=== PATIENT | male | born 1980 | race African-American/Black ===

== ENCOUNTER 2016-11-13 23:25 | Inpatient (IN) | payer OTHER ==
--- NOTE | ~2016-11-13 | US6 ---
[facility] A Service of [facility] RADIOLOGY TEXT RESULTS PATIENT: MITZI PEDROZA LOCATION: [place] [address] : 78 UNIT #: [id number] AGE: [address]: Tiago Luis MD SEX: M ORDER DR: [id number] [place] [id number] [facility] [place] [place], [place] [address] [id number] MR#: [id number] Acc #: [id number] NAME: MITZI PEDROZA : 1980 SEX: M STUDY DATE/TIME: 11/17/2016 10:01 UNIT: [facility] ROOM: [facility] STUDY DESCRIPTION: US Abdominal Limited Attending Physician: Tiago Luis M.D. Ordering Physician: Tiago Luis M.D. Primary Care Physician: No Primary Care Physician MEDICAL IMAGING REPORT This report is preliminary unless electronic signature is present EXAM Right upper quadrant abdominal ultrasound. INDICATION Elevated liver enzyme levels. PROCEDURE Evans-scale and Doppler imaging right upper quadrant of the abdomen. COMPARISON None FINDINGS Pancreas completely obscured. Liver measures 17.5 cm. Diffusely increased echotexture. Right kidney measures 11 cm. No hydronephrosis. Stones are seen in the gallbladder. Gallbladder is contracted. Common duct measures 3 mm. No gallbladder wall thickening. IMPRESSION 1. Hepatic steatosis. 2. Uncomplicated cholelithiasis. Dictated by... Javan Leslie M.D. THIS IS AN ELECTRONICALLY VERIFIED REPORT Javan Leslie M.D. at 11/17/2016 4:52 PM EED/julito TD: 11/17/2016 14:00 JOB #: [id number] [facility] A Service of [facility] RADIOLOGY TEXT RESULTS PATIENT: MITZI PEDROZA LOCATION: [facility] : 79 UNIT #: [id number] AGE: [address]: Tiago Luis MD SEX: M ORDER DR: MEDICAL IMAGING REPORT COPY
--- NOTE | ~2016-11-13 | US78 ---
[facility] A Service of [facility] RADIOLOGY TEXT RESULTS PATIENT: MITZI PEDROZA LOCATION: [facility] : 78 UNIT #: [id number] AGE: [address]: Tiago Luis MD SEX: M ORDER DR: [id number] [facility] [address] [place], [place] [address] [id number] I MR#: [id number] Acc #: [id number] NAME: MITZI PEDROZA : 1980 SEX: M STUDY DATE/TIME: 11/17/2016 9:15 UNIT: [facility] ROOM: [facility] STUDY DESCRIPTION: US Kidney Duplex Complete Attending Physician: Tiago Luis M.D. Ordering Physician: Tiago Luis M.D. Primary Care Physician: No Primary Care Physician MEDICAL IMAGING REPORT This report is preliminary unless electronic signature is present EXAM Bilateral renal artery Doppler ultrasound dated 11/17/2016 HISTORY Hypertension. COMPARISON None. FINDINGS Right kidney measures 11.3 cm and the left kidney measures 10.7 cm in length. Each kidney demonstrates normal cortical thickness and cortical echotexture without cystic or solid abnormality. No shadowing right left renal stone or hydronephrosis is evident. Right intrarenal resistive indices vary between 0.52 - 0.73. Right renal artery peak systolic velocity proximal 111 cm/sec, mid segment 155 meters per second, distal segment 66.1 cm/sec. Normal spectral Doppler waveforms are demonstrated. Right renal vein is patent. Juxtarenal abdominal aorta peak systolic velocity is proximal 114 cm/sec. Left intrarenal resistive indices vary between 0.342 - 0.63. Left renal artery peak systolic velocity proximal segment 113.1 centers per second, mid segment 64.1 cm/sec, distal segment 57.5 cm/sec. Left renal vein is patent. Right renal to aortic ratio 1.4. Left renal to aortic ratio 1.0. IMPRESSION [facility] A Service of [facility] RADIOLOGY TEXT RESULTS PATIENT: MITZI PEDROZA LOCATION: [facility] : 79 UNIT #: [id number] AGE: [address]: Tiago Luis MD SEX: M ORDER DR: No hemodynamically significant stenosis is detected within the bilateral renal arteries sonographically. If more definitive evaluation is desired, a dedicated CTA of the renal arteries would be recommended. Dictated by... Rena Oliveros M.D. THIS IS AN ELECTRONICALLY VERIFIED REPORT Rena Oliveros M.D. at 11/18/2016 8:42 AM SHARON/brady TD: 11/17/2016 22:37 JOB #: [id number] MEDICAL IMAGING REPORT COPY
--- NOTE | ~2016-11-13 | EKG ---
PATIENT: MITZI PEDROZA UNIT #: [id number] Ventricular Rate: 86 BPM Atrial Rate: 86 BPM P-R Interval: 158 ms QRS Duration: 100 ms Q-T Interval: 380 ms QTC Calculation(Bezet): 454 ms P Davin: 32 degrees Calculated R Davin: 21 degrees Calculated T Davin: 11 degrees Diagnosis Line: Normal sinus rhythm Diagnosis Line: Normal ECG Diagnosis Line: When compared with ECG of 14-NOV-2016 12:41, Diagnosis Line: No significant change was found Diagnosis Line: Confirmed by JESSE DIEGO MD ([id number]) on Diagnosis Line: 11/16/2016 10:38:26 PM INTERPRETING MD: AYANA
--- NOTE | ~2016-11-13 | A ---
[facility] Nutrition Therapy DATE: 11/14/16 Patient: MITZI PEDROZA Physician: GALI Address: [address] [place] [address] Room/Bed: [address] [place] [address], Zip: [place] [address] Admit Date: 11/14/16 Date of : [birth year] Height: 5 5 Weight: 296 134.4 NUTRITIONAL ASSESSMENT: REASON: MD consult re: obesity, High BMI note Admitting Dx: 36 y/o male admitted with PNA, influenze Type A PMH: HTN Anthropometrics: Ht: 65", Wt: 296 lbs, BMI: 49 Diet: Healthy heart Assessment: Chart reviewed, events noted. RD consulted I assume to provide diet education related to obesity. RD provided written education on Cardiac/TLC diet, 1800 calorie 5-day meal plan and healthy snacks. Verbally reviewed briefly, patient did not want much verbal education as he prefers to look over the handouts himself, states he has been getting a lot of information from people on improving his health, states he needs to increase his vegetable intake. RD encouraged slow, gradual weight loss noting BMI of 49. Patient showed good understanding and moderate motivation to follow diet. Potential barriers include disinterest/lack of motivation. RD left business card with contact info and encouraged patient to call or email with any questions, he had no further questions at this time. Dx: 1) Morbid obesity r/t lifestyle, diet AEB BMI 49. 2) Food and nutrition related knowledge deficit r/t no prior diet education AEB MD consult. Intervention: Healthy heart diet education Monitoring, Evaluation and Goals: 1. Gradual weight loss towards a healthy BMI range. 2. Understanding and implementation of healthy heart diet. Monitor: Per protocol, criteria to determine if above goals met Recommendations: 1. Continue healthy heart diet, encourage patient compliance after discharge. 2. RD provided diet education with the following handouts: -Cardiac/TLC diet -1800 calorie per day 5-day sample meal plan [facility] Nutrition Therapy DATE: 11/14/16 Patient: MITZI PEDROZA Physician: GALI Address: [address] [place] [address] Room/Bed: [address] [place] [address], Zip: [place] [address] Admit Date: 11/14/16 Date of : [birth year] Height: 5 5 Weight: 296 134.4 -Healthy snack ideas Patient showed good understanding with moderate motivation to follow diet 3. Please weigh q 3 days for monitoring purposes, patient is obese with goal to lose weight. RD will follow Mild nutrition risk Respectfully, Kourtney Oreilly RD, LD Food and Nutritional Services [facility] cc: client file
--- NOTE | ~2016-11-13 | HP ---
Unit #: [id number] #: [id number] Patient: MITZI PEDROZA. [id number] [place] [address] [place], [place] [address] [id number] I MR#: [id number] NAME: MITZI PEDROZA ROOM: 20872 Age: 36 Sex: M Admission Date: 11/14/2016 : 1980 Attending Physician: Beba Jiménez M.D. Primary Care Physician: No Primary Care Physician HISTORY AND PHYSICAL CHIEF COMPLAINT Sick. HISTORY OF PRESENT ILLNESS The patient is a 36-year-old male with a past medical history of hypertension who presented to the emergency department for evaluation of the above. The patient stats that he has not been feeling well for about two days. he reports an occasionally productive cough. He denies any shortness of breath. No chest pain, no palpitations. He has had a runny nose. He reports occasional loose stool. He denies any change in his weight. No swelling in his legs. He did not get a flu shot this year. Upon arrival in the emergency department, the patient's pulse and blood pressure were 118 and 214/124 respectively. Oxygen saturation was 99% on room air. Chest x-ray shows a right perihilar opacity. Rapid flu screen was positive for influenzae A. He was given 0.1 mg of clonidine as well as 75 mg of Tamiflu in the emergency department. He is being admitted to [facility] for evaluation and further treatment. PAST MEDICAL HISTORY Hypertension. The patient was previously on an unknown medication that he has not been taking. PAST SURGICAL HISTORY None. SOCIAL HISTORY The patient lives with his uncle. There is no tobacco use. He reports occasional alcohol use. He denies illicit drug use. FAMILY HISTORY Notable for there being no family history of diabetes. He thinks a maternal uncle may have had a myocardial infarction. He is unsure of the age. ALLERGIES No known allergies. HOME MEDICATIONS None. REVIEW OF SYSTEMS Unit #: [id number] #: [id number] Patient: MITZI PEDROZA A ten point review of systems is negative except as indicated in HPI. DIAGNOSTIC STUDIES CARDIOVASCULAR: EKG shows sinus tachycardia with a rate of 107 beats per minute. IMAGING: Chest x-ray shows an opacity in the right superior perihilar region concerning for focal lung consolidation. There is also thickening of the central peribronchovascular soft tissues, moderate cardiac silhouette enlargement with no failure appreciated. Chest x-ray reviewed by me as well. LABORATORY: Basic metabolic panel shows potassium of 3.2, glucose is 124. Rapid flu screen is positive for influenzae B. Troponin is 0.12. Complete blood count is essentially normal. PHYSICAL EXAMINATION VITAL SIGNS: Temperature is 99.8, pulse 118, respirations 18, blood pressure 214/124. GENERAL: The patient is an -Gu[place] male who is awake and alert, in no acute distress. HEENT: The head is atraumatic. Mucous membranes are moist. NECK: Supple. Trachea is midline. CARDIOVASCULAR: Regular rate and rhythm. LUNGS: Relatively clear to auscultation bilaterally with no increased work of breathing. ABDOMEN: Soft, nontender with bowel sounds present in all four quadrants. EXTREMITIES: Nontender with no pedal edema. NEURO: The patient is awake and alert. He follows commands. PSYCH: Mood and affect are normal. The patient is cooperative. SKIN: Skin of examined areas is warm and dry. ASSESSMENT The patient is a 36-year-old male with: 1. Pneumonia, community-acquired. 2. Influenzae B: The patient received Tamiflu in the emergency department. 3. Hypokalemia. 4. Uncontrolled hypertension: The patient was on an unknown blood pressure medication at home that he has not been taking. He received clonidine 0.1 mg in the emergency department. Most recent blood pressure was 185/124. 5. Cardiac enlargement: The patient denies any history of congestive heart failure. 6. Elevated troponin: The patient denies any chest pain. Troponin is 0.12. 7. Obesity with a weight of 111 kilograms. PLAN 1. Admit to intermediate level. 2. Healthy heart diet. 3. Blood cultures x2. 4. Sputum culture and sensitivity. 5. Procalcitonin level. 6. Rocephin IV and azithromycin IV for community-acquired pneumonia pending further workup. Unit #: [id number] #: [id number] Patient: MITZI PEDROZA 7. Sepsis protocol. 8. Check urinalysis with culture and sensitivity. 9. Urine tox screen. 10. Supplemental oxygen, 2 to 4 L, to maintain saturations greater than 92%. 11. Duo-Nebs p.r.n. q.4 hours. 12. Tamiflu 75 mg p.o. b.i.d. 13. Check magnesium level. Potassium and magnesium protocol. 14. P.r.n. hydralazine. 15. Serial cardiac enzymes. 16. Fasting lipid panel. 17. 2D echo for further evaluation of cardiac enlargement. 18. Check BNP. 19. Consult Dr. Handy regarding elevated troponin. 20. Nutrition consult regarding obesity. 21. P.r.n. Tylenol. 22. SCDs for DVT prophylaxis. 23. Repeat labs in the morning. 24. Additional workup and consultants based on above. Dictated by Jhon Rondon/rachana TD: 11/14/2016 05:59 JOB #: [id number] HISTORY AND PHYSICAL X Beba Jiménez MD HISTORY AND PHYSICAL
--- NOTE | ~2016-11-13 | DS ---
Unit #: [id number] #: [id number] Patient: MITZI PEDROZA. [id number] [address] [address] [id number] I MR#: [id number] NAME: MITZI PEDROZA ROOM: 579 Age: 36 Sex: M Admission Date: 11/14/2016 : 1980 Discharge Date: 11/18/2016 Attending Physician: Tiago Luis M.D. Primary Care Physician: No Primary Care Physician DISCHARGE SUMMARY ADMITTING DIAGNOSIS Feeling sick. FURTHER DIAGNOSES 1. Influenzae B pneumonia. 2. Hypertensive crisis. 3. Hyperlipidemia. 4. Morbid obesity. CONSULTANTS Dr. Handy. 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 HOSPITAL COURSE He was noted to be positive for influenzae B. He was treated with Tamiflu for five days. His blood pressure was initially in the 200s/120s. Feed Crusher Operator saw him. He was started on blood pressure medications. His blood pressure medications were titrated. His LDL was noted to be elevated and he was started on Lipitor. We will explain to him about side effects of medications of Lipitor including rhabdomyolysis and elevated liver function tests. We will explain about the possible (1) for the LEYLA inhibitors and requested him to follow with primary care. He does not have a primary care but trying to set up an appointment in the transition clinic on November 27, 2016, at 9:20 in the morning. He was counseled to take his medications regularly for the blood pressure and follow with his primary care. I requested him to be off away from daycare kids at least for a couple of days more to make sure his symptoms resolve. On the day of the discharge, his physical examination: VITAL SIGNS - temperature 97.8, pulse rate 82, respiratory rate 20, blood pressure 132/68. The patient is obese, alert, oriented x3, lying in the bed, in no acute distress. HEENT - normocephalic, atraumatic. No icterus. PERRLA. Extraocular movements are intact. NECK is supple. No JVD. HEART - S1, S2. Regular rate and rhythm. CHEST - bilateral equal air entry, clear to auscultation. ABDOMEN - soft, nontender. EXTREMITIES - no edema. Normal pulses. DISCHARGE MEDICATIONS Include: Unit #: [id number] #: [id number] Patient: MITZI PEDROZA 1. Lipitor 20 mg p.o. daily. 2. Atenolol 100 mg p.o. daily. 3. Hydrochlorothiazide 25 mg daily. 4. Lisinopril 30 mg p.o. daily. 5. Hydralazine 100 mg p.o. twice a day. 6. KCl 20 mEq p.o. daily. He was instructed to follow up with his primary care in one to two weeks. Total time spent in the discharge - 28 minutes. Dictated by..Jhon Marshall TD: 11/21/2016 05:53 JOB #: [id number] DISCHARGE SUMMARY X X DISCHARGE SUMMARY
--- NOTE | ~2016-11-13 | EKG ---
PATIENT: MITZI PEDROZA UNIT #: [id number] Ventricular Rate: 107 BPM Atrial Rate: 107 BPM P-R Interval: 172 ms QRS Duration: 88 ms Q-T Interval: 332 ms QTC Calculation(Bezet): 443 ms P Stock[place]: 41 degrees Calculated R [place]: -6 degrees Calculated T [place]: 25 degrees Diagnosis Line: Sinus tachycardia Diagnosis Line: Otherwise normal ECG Diagnosis Line: No previous ECGs available Diagnosis Line: Confirmed by ANCA DORANTES MD ([id number]) on 11/14/2016 Diagnosis Line: 5:20:06 PM INTERPRETING MD: JAYNA MOORE
--- NOTE | ~2016-11-13 | EKG ---
PATIENT: MITZI PEDROZA UNIT #: [id number] Ventricular Rate: 85 BPM Atrial Rate: 85 BPM P-R Interval: 168 ms QRS Duration: 90 ms Q-T Interval: 386 ms QTC Calculation(Bezet): 459 ms P [place]: 20 degrees Calculated R [place]: 14 degrees Calculated T [place]: 21 degrees Diagnosis Line: Normal sinus rhythm Diagnosis Line: Normal ECG Diagnosis Line: When compared with ECG of 13-NOV-2016 22:45, Diagnosis Line: (unconfirmed) Diagnosis Line: No significant change was found Diagnosis Line: Confirmed by ANCA DORANTES MD ([id number]) on 11/14/2016 Diagnosis Line: 5:32:41 PM INTERPRETING MD: JAYNA MOORE
--- NOTE | ~2016-11-13 | CR63 ---
[facility] A Service of [facility] RADIOLOGY TEXT RESULTS PATIENT: MITZI PEDROZA LOCATION: [facility] : 79 UNIT #: [id number] AGE: [address]: Bigg Back DO SEX: M ORDER DR: [id number] [facility] [address] [place], [place] [address] [id number] MR#: [id number] #: [id number] NAME: MITZI PEDROZA : 1980 SEX: M STUDY DATE/TIME: 11/13/2016 22:01 UNIT: [facility] ROOM: STUDY DESCRIPTION: CR Chest 2 View Attending Physician: Bigg Back D.O. Ordering Physician: Bigg Back D.O. MEDICAL IMAGING REPORT This report is preliminary unless electronic signature is present EXAM Two view chest HISTORY Cough, congestion, short of air, weakness and fevers symptoms for a week. No cancer or hypertension or trauma history. COMMENT 2 views of the chest reviewed. The study is limited by the patient's obesity. There is no pleural effusion. There is moderate cardiac silhouette enlargement. There is also somewhat angular opacity in the medial right upper lobe which is concerning for an area of pulmonary consolidation. This could be a focal pneumonia or postobstructive process and neoplastic disease to be excluded on followup. There is in general thickening of the central peribronchovascular soft tissues concerning for asthma or bronchitis. It is possible that this is a focal atelectatic area related to mucous plugging. Further imaging to be obtained depending upon clinical presentation. No congestive failure or pneumothorax. IMPRESSION There is an angular opacity right superior perihilar region which is most concerning for an area of focal lung consolidation. It could be an area of pneumonia or aspiration or it could be a postobstructive area of atelectasis. Underlying neoplastic disease/mass to be excluded with followup to ensure complete resolution. There does appear to be some component of thickening of the central peribronchovascular soft tissues. Please correlate for history of asthma or bronchitis since mucous plugging could result in this appearance also. Also of note is moderate cardiac silhouette enlargement. There is no congestive failure appreciated. Appearance of the cardiac silhouette could be due to dilated cardiomyopathy or pericardial effusion. There is no pleural effusion or pneumothorax. Further imaging to be obtained depending upon clinical STS. [facility] A Service of [facility] RADIOLOGY TEXT RESULTS PATIENT: MITZI PEDROZA LOCATION: [facility] #: [id number] : 78 UNIT #: [id number] AGE: [address]: Bigg Back DO SEX: M ORDER DR: findings. STAT * RESULT Dictated by... Alexia Sierra M.D. THIS IS AN ELECTRONICALLY VERIFIED REPORT Alexia Sierra M.D. at 11/13/2016 11:04 PM GABRIELLA/brady TD: 11/13/2016 22:21 JOB #: [id number] MEDICAL IMAGING REPORT COPY
--- NOTE | ~2016-11-13 | CO ---
Unit #: [id number] #: [id number] Patient: MITZI PEDROZA. [id number] [address] [address] [id number] I MR#: [id number] NAME: MITZI PEDROZA ROOM: 579 Age: 36 Sex: M Admission Date: 11/14/2016 : 1980 Attending Physician: Tiago Luis M.D. CONSULTATION REPORT REASON FOR CONSULTATION Hypertension. HISTORY OF PRESENT ILLNESS This is a 36-year-old male, who presented to the emergency room with symptoms he contribute to as a cold. He has not been feeling well for the past 2 days, where he had a cough and rhinitis. In the emergency room, the patient was hypertensive with blood pressure 214/124 mmHg. He apparently has been diagnosed with hypertension in the past and has been out of his blood pressure medication for a while. He was treated in the emergency room with clonidine. Flu swab was positive for influenza B. He denies any symptoms of angina, dyspnea, or palpitations. Troponin elevation was up to 1.2 in the emergency room, but later trended downward to 0.03. He had no acute EKG changes. PAST MEDICAL HISTORY 1. Hypertension. 2. Nonsmoker. PAST SURGICAL HISTORY No previous surgeries. 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 He lives with his uncle. He denies illicit drug, alcohol, or tobacco use. FAMILY HISTORY Negative for coronary artery disease. ALLERGIES No known drug allergies. HOME MEDICATIONS No current medications. REVIEW OF SYSTEMS Ten-point review of system is negative except details as stated in the HPI. PHYSICAL EXAMINATION VITAL SIGNS: Blood pressure 167/114, heart rate 80, temperature 98.5. BMI of 49. GENERAL: This is an obese 36-year-old male, who is in no acute distress. NEUROLOGIC: He is awake, alert, and oriented without focal weaknesses. Unit #: [id number] #: [id number] Patient: MITZI PEDROZA NECK: Trachea is midline. No thyromegaly or lymphadenopathy. No jugular venous distention. HEART: S1 and S2. Heart sounds are normal. No murmurs. No rubs or clicks. Regular rate and rhythm. LUNGS: Diminished breath sounds without rales, rhonchi, or wheezing. ABDOMEN: Soft and nontender with bowel sounds are present. No organomegaly. EXTREMITIES: Without leg edema. SKIN: Warm and dry. DIAGNOSTIC STUDIES LABORATORY RESULTS: Glucose 118, BUN 8, creatinine is 1.0, sodium 140, potassium 3.4. AST 71, ALT 86, and CK total of 328, MB 1.6, MB index 0.5, troponin 0.12 to less than 0.03 to 0.03. BNP 24. Cholesterol 177, triglycerides 89, LDL 128, HDL 31. White count 4.2, hemoglobin 14.8, hematocrit 45.0, platelet count 160. IMAGING STUDIES: Chest x-ray shows an area of angular opaque density in the right superior perihilar region concerning for a focal lung consolidation. Underlying neoplastic disease/mass could not be excluded. No heart failure. CARDIOVASCULAR STUDIES: EKG shows normal sinus rhythm, rate of 85 beats per minute, otherwise normal. IMPRESSION 1. Pneumonia. 2. Influenza B positive. 3. Hypokalemia. 4. Uncontrolled hypertension. 5. Hypertensive heart disease. 6. Indeterminate troponin. 7. Morbid obesity. PLAN 1. Cardiology was consulted for hypertension. We will start the patient on antihypertensive medications with atenolol, LEYLA inhibitor, and hydrochlorothiazide. 2. We will obtain 2D echocardiogram to evaluate left ventricular systolic function. 3. Repeat EKG. 4. We will recheck troponin. 5. We will follow the patient with you. Thank you for allowing us to assist in this patient's care. Dictated by... Alexander ThompsonPNikiaRMl for Jhon Washington/karime TD: 11/14/2016 22:33 JOB #: [id number] Unit #: [id number] #: [id number] Patient: MITZI PEDROZA CONSULTATION REPORT X Arthur Madrigal APRN X CONSULTATION REPORT
[2016-11-13 22:39] LABS: BASOPHIL# 0.1 X10e3 (0-0.3); BASOPHIL% 0.9 % (0-2.5); EOSINOPHIL% 0.6 % (0.0-7.0); HEMATOCRIT 45.7 % (38.0-50.0); HEMOGLOBIN 15.1 gm/dL (13.0-16.0); LYMPHOCYTE# 1.4 X10e3 (1.0-3.5); LYMPHOCYTE% 24.7 % (17.0-45.0); MEAN CELL VOLUME 89.9 FL (83-96); MEAN CORPUSCULAR HEMOGLOBIN 29.7 PG (28-34); MEAN PLATELET VOLUME 9.7 FL (6.5-11.5); MONOCYTE# 0.8 X10e3 (0-1.0); MONOCYTE% 14.3 % (3.0-12.0); NEUTROPHIL# 3.3 X10e3 (1.5-7.1); NEUTROPHIL% 59.5 % (40-75); PLATELET COUNT 161 X10e3 (140-420); RED BLOOD COUNT 5.09 X10e (3.90-5.60); RED CELL DISTRIBUTION WIDTH 14.1 % (11.0-15.5); WHITE BLOOD COUNT 5.6 X10e3 (4.0-10.5)
[2016-11-13 22:43] LABS: DIFF IND NO
[2016-11-13 22:44] LABS: POC - CKMB 1.5 ng/mL (0.0-7.9); POC - TROPONIN 0.12 ng/mL (<=0.05)
[2016-11-13 22:48] LABS: INFLUENZA A NEG (NEG); INFLUENZA B POS (NEG)
[2016-11-13 22:55] LABS: BLOOD UREA NITROGEN 9 mg/dL (9-23); BUN/CREATININE RATIO 8.18; CALCIUM SERUM 9.4 mg/dL (8.4-10.2); CARBON DIOXIDE 30 mmol/L (22-31); CHLORIDE 101 mmol/L (100-111); CREATININE SERUM 1.1 mg/dL (0.6-1.4); GLOM FILT RATE Estimated ABOVE60 mL/min (>60); GLUCOSE FASTING 124 mg/dL (70-110); POTASSIUM 3.2 mmol/L (3.5-5.1); SODIUM 141 mmol/L (135-145)
[2016-11-14 05:30] LABS: BASOPHIL% 0.6 % (0-2.5); EOSINOPHIL% 0.2 % (0.0-7.0); HEMOGLOBIN 14.8 gm/dL (13.0-16.0); LYMPHOCYTE# 1.4 X10e3 (1.0-3.5); LYMPHOCYTE% 32.1 % (17.0-45.0); MEAN CELL VOLUME 89.6 FL (83-96); MEAN CORPUSCULAR HEMOGLOBIN 29.5 PG (28-34); MEAN CORPUSCULAR HGB CONC 32.9 g/dL (30-36); MEAN PLATELET VOLUME 9.4 FL (6.5-11.5); MONOCYTE# 0.5 X10e3 (0-1.0); NEUTROPHIL# 2.4 X10e3 (1.5-7.1); NEUTROPHIL% 56.1 % (40-75); PLATELET COUNT 160 X10e3 (140-420); RED BLOOD COUNT 5.03 X10e (3.90-5.60); RED CELL DISTRIBUTION WIDTH 13.9 % (11.0-15.5); WHITE BLOOD COUNT 4.2 X10e3 (4.0-10.5)
[2016-11-14 05:33] LABS: DIFF IND NO
[2016-11-14 06:28] LABS: ALBUMIN SERUM 3.9 g/dL (3.5-5.0); ALKALINE PHOSPHATASE 79 U/L (32-92); ALT (SGPT) 86 U/L (10-40); AST (SGOT) 71 U/L (10-42); BILIRUBIN,TOTAL 0.5 mg/dL (0.2-2.0); BLOOD UREA NITROGEN 8 mg/dL (9-23); CALCIUM SERUM 8.8 mg/dL (8.4-10.2); CARBON DIOXIDE 28 mmol/L (22-31); CHLORIDE 103 mmol/L (100-111); GLOM FILT RATE Estimated ABOVE60 mL/min (>60); GLUCOSE FASTING 118 mg/dL (70-110); POTASSIUM 3.3 mmol/L (3.5-5.1); PROTEIN TOTAL SERUM 7.6 g/dL (6.0-8.3); SODIUM 140 mmol/L (135-145)
[2016-11-14 06:58] LABS: CHOLESTEROL 177 mg/dL (0-200); HDL CHOLESTEROL 31 mg/dL (29-75); LDL CHOLESTEROL 128 mg/dL (-130); LDL/HDL RATIO 4 RATIO (0-4); TRIGLYCERIDES 89 mg/dL (10-160)
[2016-11-14 09:03] LABS: %MB 0.5 % (0.0-4.0); MB 1.5 ng/ml
[2016-11-14 09:39] LABS: URINE SOURCE CLEAN CATCH
[2016-11-14 09:45] LABS: URINE APPEARANCE CLEAR; URINE BILIRUBIN NEG (NEG); URINE BLOOD NEG (NEG); URINE COLOR YELLOW; URINE GLUCOSE NEG (NEG); URINE KETONE NEG (NEG); URINE LEUKOCYTE ESTERASE NEG (NEG); URINE NITRATE NEG (NEG); URINE PROTEIN TRACE (NEG); URINE SPECIFIC GRAVITY 1.016 (1.003-1.035)
[2016-11-14 09:51] LABS: CULTURE INDICATED? NO
[2016-11-14 10:34] LABS: AMPHETAMINE NEG (NEG); BARBITURATES NEG (NEG); BENZODIAZEPINES NEG (NEG); COCAINE NEG (NEG); MARIJUANA NEG (NEG); OPIATES NEG (NEG); TRICYCLIC ANTIDEPRESSANTS NEG (NEG); U METHADONE NEG (NEG)
[2016-11-14 15:04] LABS: %MB 0.5 % (0.0-4.0); MB 1.6 ng/ml
[2016-11-15 08:44] LABS: MAGNESIUM 2.2 mg/dL (1.6-3.0); POTASSIUM 3.6 mmol/L (3.5-5.1)
[2016-11-15 09:40] LABS: %MB 0.5 % (0.0-4.0); MB 1.5 ng/ml
[2016-11-16 06:38] LABS: HEMATOCRIT 43.7 % (38.0-50.0); HEMOGLOBIN 14.5 gm/dL (13.0-16.0); MEAN CELL VOLUME 89.6 FL (83-96); MEAN CORPUSCULAR HEMOGLOBIN 29.7 PG (28-34); MEAN CORPUSCULAR HGB CONC 33.2 g/dL (30-36); MEAN PLATELET VOLUME 9.9 FL (6.5-11.5); RED BLOOD COUNT 4.87 X10e (3.90-5.60); RED CELL DISTRIBUTION WIDTH 13.8 % (11.0-15.5); WHITE BLOOD COUNT 4.8 X10e3 (4.0-10.5)
[2016-11-16 07:18] LABS: ALBUMIN SERUM 3.7 g/dL (3.5-5.0); ALKALINE PHOSPHATASE 79 U/L (32-92); ALT (SGPT) 142 U/L (10-40); AST (SGOT) 93 U/L (10-42); BILIRUBIN,TOTAL 1.1 mg/dL (0.2-2.0); BLOOD UREA NITROGEN 16 mg/dL (9-23); BUN/CREATININE RATIO 13.33; CALCIUM SERUM 8.8 mg/dL (8.4-10.2); CARBON DIOXIDE 27 mmol/L (22-31); CHLORIDE 98 mmol/L (100-111); CREATININE SERUM 1.2 mg/dL (0.6-1.4); GLOM FILT RATE Estimated ABOVE60 mL/min (>60); GLUCOSE FASTING 115 mg/dL (70-110); MAGNESIUM 2.2 mg/dL (1.6-3.0); POTASSIUM 3.5 mmol/L (3.5-5.1); SODIUM 137 mmol/L (135-145)
[2016-11-17 13:35] LABS: ALBUMIN SERUM 3.8 g/dL (3.5-5.0); ALKALINE PHOSPHATASE 76 U/L (32-92); ALT (SGPT) 178 U/L (10-40); AST (SGOT) 91 U/L (10-42); BILIRUBIN,TOTAL 1.3 mg/dL (0.2-2.0); BLOOD UREA NITROGEN 18 mg/dL (9-23); CALCIUM SERUM 9.2 mg/dL (8.4-10.2); CARBON DIOXIDE 27 mmol/L (22-31); CHLORIDE 103 mmol/L (100-111); CREATININE SERUM 1.2 mg/dL (0.6-1.4); GLOM FILT RATE Estimated ABOVE60 mL/min (>60); GLUCOSE FASTING 119 mg/dL (70-110); POTASSIUM 3.8 mmol/L (3.5-5.1); PROTEIN TOTAL SERUM 7.3 g/dL (6.0-8.3); SODIUM 141 mmol/L (135-145)
[2016-11-18 09:01] LABS: HEMATOCRIT 43.8 % (38.0-50.0); HEMOGLOBIN 14.5 gm/dL (13.0-16.0); MEAN CELL VOLUME 89.9 FL (83-96); MEAN CORPUSCULAR HEMOGLOBIN 29.7 PG (28-34); MEAN CORPUSCULAR HGB CONC 33.1 g/dL (30-36); MEAN PLATELET VOLUME 9.7 FL (6.5-11.5); RED BLOOD COUNT 4.87 X10e (3.90-5.60); RED CELL DISTRIBUTION WIDTH 13.9 % (11.0-15.5); WHITE BLOOD COUNT 6.5 X10e3 (4.0-10.5)
[2016-11-18 09:45] LABS: ALKALINE PHOSPHATASE 71 U/L (32-92); ALT (SGPT) 154 U/L (10-40); AST (SGOT) 69 U/L (10-42); BILIRUBIN,TOTAL 0.8 mg/dL (0.2-2.0); BLOOD UREA NITROGEN 24 mg/dL (9-23); BUN/CREATININE RATIO 17.14; CARBON DIOXIDE 26 mmol/L (22-31); CHLORIDE 102 mmol/L (100-111); CREATININE SERUM 1.4 mg/dL (0.6-1.4); GLOM FILT RATE Estimated ABOVE60 mL/min (>60); GLUCOSE FASTING 100 mg/dL (70-110); POTASSIUM 3.7 mmol/L (3.5-5.1); PROTEIN TOTAL SERUM 7.2 g/dL (6.0-8.3); SODIUM 137 mmol/L (135-145)
[2016-11-18] MEDS ORDERED: ATENOLOL PO (12:48)
[2016-11-18] MEDS ORDERED: HYDROCHLOROTHIA25 MG PO (12:49)
[2016-11-18] MEDS ORDERED: LIPITOR20 MG PO (12:50)
[2016-11-18] MEDS ORDERED: HYDRALAZINE HC100 MG PO (12:50)
[2016-11-18] MEDS ORDERED: K-DUR20 ME2 PO (12:59)
[2016-11-18] MEDS ORDERED: LISINOPRIL20 MG PO (12:59)
[2016-11-20 00:38] LABS: HA AB IGM (HEPPAN) Nonreactive (Nonreactive); HB CORE AB IGM (HEPPAN) Nonreactive (Nonreactive); HB S AG (HEPPAN) Nonreactive (Nonreactive); HEP C AB (HEPPAN) Nonreactive (Nonreactive); HEP C AB SIGNAL TO CUTOFF 0.02 ratio (<1.00)
== END 2016-11-18 13:38 | disposition home or self-care (01) | DRG 871 ==
LOC: CED 23:25 → CEDOF 11-14 01:10 → C5C 11-14 09:19
PROVIDERS: Emergency Medicine; Family Medicine; Internal Medicine; Internal Medicine Cardiovascular Disease
PROC: B246YZZ Ultrasonography of Right and Left Heart using Other Contrast (ICD-10-PCS; 2016-11-14)
PROC: 3E0234Z Introduction of Serum, Toxoid and Vaccine into Muscle, Percutaneous Approach (ICD-10-PCS; principal; 2016-11-18)
DX: A41.89 Other specified sepsis (principal); J11.00 Influenza due to unidentified influenza virus with unspecified type of pneumonia; I50.21 Acute systolic (congestive) heart failure; I42.9 Cardiomyopathy, unspecified; Z68.42 Body mass index [BMI] 45.0-49.9, adult; I11.0 Hypertensive heart disease with heart failure; E66.01 Morbid (severe) obesity due to excess calories; E87.6 Hypokalemia; E78.5 Hyperlipidemia, unspecified; Z23 Encounter for immunization; R74.0 Nonspecific elevation of levels of transaminase and lactic acid dehydrogenase [LDH]
CPT/HCPCS: 36415; 71020; 76705; 80048; 80053; 80061; 80074; 80307; 81003; 82308; 82550; 82553; 83605; 83735; 83880; 84132; 84484; 85025; 85027; 87040; 87070; 87205; 87804; 90688; 93005; 93306; 93975; 94640; 94760; 99285; J0360; J0456; J0696